=== PATIENT | female | born 1985 | race American Indian/Alaskan Native ===

== ENCOUNTER 2017-05-26 11:19 | Emergency (ER) | payer SELFPAY ==
--- NOTE | 2017-05-26 11:26 | ED PDOC ---
Arrival/HPI - General Time Seen by Provider: 05/26/17 11:24 Historian: Patient - History of Present Illness Narrative History of Present Illness (Text): 05/26/17 11:26 32 y/o female, pmh including bronchitis/asthma (out of the advair diskus 250/50 bid, not allergic to z-pack, c/o coughing/fever/bodyache x 2 days. Productive coughing with phelgm, still smoking which I advised her to stop smoking, subjective fever, associated with the bodyache, no night sweat, no rash, no numbness or tingling, eating and drinking well with no nausea or vomiting, no other medical or psychological complaints. Past Medical History - Provider Review Nursing Documentation Reviewed: Yes - Infectious Disease Hx of Infectious Diseases: None - Cardiac Hx Hypotension: Yes - Pulmonary Hx Asthma: Yes - Psychiatric Hx Substance Use: No - Anesthesia Hx Anesthesia: No Family/Social History - Physician Review Nursing Documentation Reviewed: Yes Family/Social History: Unknown Family HX Smoking Status: Current Some Days Smoker Hx Alcohol Use: Yes Hx Substance Use: No Allergies/Home Meds Allergies/Adverse Reactions: Allergies unkl antibiotic Allergy (Uncoded 05/26/17 11:57) RASH Review of Systems - Review of Systems Constitutional: absent: Fatigue, Fevers Eyes: absent: Vision Changes ENT: absent: Hearing Changes Respiratory: Cough, Sputum. absent: SOB, Wheezing Cardiovascular: absent: Chest Pain Gastrointestinal: absent: Abdominal Pain, Diarrhea, Nausea, Vomiting Musculoskeletal: Myalgias. absent: Arthralgias, Back Pain, Joint Swelling Skin: absent: Rash, Pruritis, Skin Lesions Neurological: absent: Headache, Dizziness Physical Exam Vital Signs Reviewed: Yes Vital Signs Temp Pulse Resp BP Pulse Ox 05/26/17 11:51 16 05/26/17 11:24 98.7 F 91 H 16 127/82 98 Temperature: Afebrile Blood Pressure: Normal Pulse: Regular Respiratory Rate: Normal Appearance: Positive for: Well-Appearing, Non-Toxic, Comfortable Pain Distress: None Mental Status: Positive for: Alert and Oriented X 3 - Systems Exam Head: Present: Atraumatic, Normocephalic Pupils: Present: PERRL Extroacular Muscles: Present: EOMI Conjunctiva: Present: Normal Ears: Present: NORMAL TM, Normal Canal. No: Erythema Mouth: Present: Moist Mucous Membranes Pharnyx: No: ERYTHEMA, EXUDATE, TONSILS ENLARGED Nose (External): Present: Atraumatic. No: Abrasion, Contusion Nose (Internal): Present: Normal Inspection, No Active Bleeding. No: Rhinorrhea , Septal Hematoma, Epistaxis Neck: Present: Normal Range of Motion, Trachea Midline. No: MIDLINE TENDERNESS , Lymphadenopathy Respiratory/Chest: Present: Clear to Auscultation, Good Air Exchange, Wheezes ( mild bilaterally), Decreased Breath Sounds (mild bilaterally), Rhonchi (mild bilaterally). No: Respiratory Distress, Accessory Muscle Use, Rales, Retracting , Tachypneic, Tender to Palpation Cardiovascular: Present: Regular Rate and Rhythm, Normal S1, S2, Other (no pedal edema). No: Murmurs Abdomen: Present: Normal Bowel Sounds. No: Tenderness, Distention, Peritoneal Signs Back: Present: Normal Inspection Upper Extremity: Present: Normal Inspection. No: Cyanosis, Edema Lower Extremity: Present: Normal Inspection. No: Edema Neurological: Present: GCS=15, Speech Normal, Motor Func Grossly Intact, Gait Normal, Memory Normal Skin: Present: Warm, Dry, Normal Color. No: Rashes Psychiatric: Present: Alert, Oriented x 3, Normal Insight, Normal Concentration Medical Decision Making ED Course and Treatment: 05/26/17 11:46 -rapid flu -chest xray -duoneb, prednisone, zithromax, singulair -observe and reasses 05/26/17 12:31 -Urine hcg negative -Rapid flu negative -Chest xray show no active disease -Lung is clear to auscultate with no wheezing/crackles/chronchis. -Pt. feels significantly better, coughing resolved, bilateral increase aeration. -Discharge home with zithromax, prednisoine, albuterol MDI, advair diskus, singulair, stay hydrated, bed rest, follow up with your own pmd within 2 days, return to the ER for any new or worsening signs or symptoms. - Lab Interpretations Lab Results: Lab Results 05/26/17 11:42: Influenza Typ A,B (EIA) Negative for flu a/b I have reviewed the lab results: Yes Interpretation: No clinic. lab abnormalty - RAD Interpretation Radiology Orders: 05/26/17 11:40 CHEST PORTABLE [RAD] Stat no active disease Admissions Assistant: Radiologist - Medication Orders Current Medication Orders: Discontinued Medications Albuterol/Ipratropium (Duoneb 3 Mg/0.5 Mg (3 Ml) Ud) 3 ml IH STAT STA Stop: 05/26/17 11:41 Last Admin: 05/26/17 12:01 Dose: 3 ml Azithromycin (Zithromax) 500 mg PO STAT STA PRN Reason: Protocol Stop: 05/26/17 11:41 Last Admin: 05/26/17 12:01 Dose: 500 mg Montelukast Sodium (Singulair) 10 mg PO STAT STA Stop: 05/26/17 11:41 Last Admin: 05/26/17 12:01 Dose: 10 mg Prednisone (Prednisone Tab) 60 mg PO STAT ONE Stop: 05/26/17 11:41 Last Admin: 05/26/17 12:01 Dose: 60 mg - PA / ER PHYSICIAN / Resident Statement / has reviewed & agrees with the documentation as recorded. Disposition/Present on Arrival - Present on Arrival Any Indicators Present on Arrival: No History of DVT/PE: No History of Uncontrolled Diabetes: No Urinary Catheter: No History of Decub. Ulcer: No History Surgical Site Infection Following: None - Disposition Have Diagnosis and Disposition been Completed?: Yes Diagnosis: Medication refill, Bronchitis Disposition: HOME/ ROUTINE Disposition Time: 18:07 Condition: IMPROVED Additional Instructions: Discharge home with zithromax, prednisoine, albuterol MDI, advair diskus, singulair, stay hydrated, bed rest, follow up with your own pmd within 2 days, return to the ER for any new or worsening signs or symptoms. Prescriptions: Albuterol HFA [Ventolin HFA 90 mcg/actuation (8 g)] 2 puff IH [id number] PRN #1 puff PRN Reason: Other Azithromycin [Zithromax] 250 mg PO DAILY #4 tab Benzonatate [Tessalon Perles] 100 mg PO TID PRN #30 sgl PRN Reason: Other Fluticasone/Salmeterol 250/50 [Advair Diskus] 1 puff IH Q12 #1 unit Montelukast [Singulair] 10 mg PO DAILY #20 tab predniSONE [Prednisone] 2 tab PO DAILY #8 tab Referrals: [facility] [place] [facility] [place] - Follow up with primary Forms: WORK NOTE
[2017-05-26 11:29] VITALS: BP 127/82; PULSE 91; RESP 16; TEMP 98.7; O2SAT 98
[2017-05-26] MEDS ORDERED: Albuterol-Ipratrop 3 mg / 0.5 (3 ml) UD IH STA (11:40)
--- NOTE | 2017-05-26 13:25 | RAD ---
HISTORY: medical clearance COMPARISON: 06/12/2016 FINDINGS: LUNGS: No active pulmonary disease. PLEURA: No significant pleural effusion identified, no pneumothorax apparent. CARDIOVASCULAR: Normal. OSSEOUS STRUCTURES: No significant abnormalities. VISUALIZED UPPER ABDOMEN: Normal. OTHER FINDINGS: None. IMPRESSION: No active disease.
--- NOTE | 2017-05-27 00:56 | CARD ---
APPROVED REPORT EKG Measurement Heart [id number] <Conclusion> Normal sinus rhythm Normal ECG
== END 2017-05-26 13:19 | disposition home or self-care (01) ==
LOC: ED 11:19
DX: J40 Bronchitis, not specified as acute or chronic (principal); Z76.0 Encounter for issue of repeat prescription

== ENCOUNTER 2017-06-15 14:30 | Emergency (ER) | payer OTHER ==
[2017-06-15 14:49] VITALS: TEMP 98.6; O2SAT 98; BMI 29.2
[2017-06-15] MEDS ORDERED: Albuterol-Ipratrop 3 mg / 0.5 (3 ml) UD IH STA ×2 (14:59→15:02)
--- NOTE | 2017-06-15 15:07 | ED PDOC ---
Arrival/HPI - General Chief Complaint: Respiratory Distress Time Seen by Provider: 06/15/17 14:52 Historian: Patient - History of Present Illness Narrative History of Present Illness (Text): 06/15/17 15:04 32yo female Asthmatic who present with complaint of wheezing, cough, and SOB. States she broke her nebulizer 3weeks ago and has been having these symptoms every night and at work. She smokes tobacco. Never admitted for Asthma. Not steroid dependent. Denies fever, chills, sick contact, travel, any other complaint. Past Medical History - Provider Review Nursing Documentation Reviewed: Yes - Infectious Disease Hx of Infectious Diseases: None - Cardiac Hx Hypotension: Yes - Pulmonary Hx Asthma: Yes - Neurological Hx Neurological Disorder: No - HEENT Hx HEENT Disorder: No - Renal Hx Renal Disorder: No - Endocrine/Metabolic Hx Endocrine Disorders: No - Hematological/Oncological Hx Blood Disorders: No - Integumentary Hx Dermatological Disorder: No - Musculoskeletal/Rheumatological Hx Musculoskeletal Disorders: No - Gastrointestinal Hx Gastrointestinal Disorders: No - Genitourinary/Gynecological Hx Genitourinary Disorders: No - Psychiatric Hx Psychophysiologic Disorder: No Hx Substance Use: No - Anesthesia Hx Anesthesia: No Family/Social History - Physician Review Nursing Documentation Reviewed: Yes Family/Social History: Unknown Family HX Smoking Status: Current Some Days Smoker Hx Alcohol Use: Yes Hx Substance Use: No Allergies/Home Meds Allergies/Adverse Reactions: Allergies unkl antibiotic Allergy (Uncoded 05/26/17 11:57) RASH Review of Systems - Physician Review All systems were reviewed & negative as marked: Yes - Review of Systems Constitutional: Normal Eyes: Normal ENT: Normal Respiratory: SOB, Cough, Wheezing Cardiovascular: Normal Gastrointestinal: Normal Genitourinary Female: Normal Musculoskeletal: Normal Skin: Normal Neurological: Normal Endocrine: Normal Hemo/Lymphatic: Normal Psychiatric: Normal Physical Exam Vital Signs Reviewed: Yes Vital Signs Temp Pulse Resp BP Pulse Ox 06/15/17 15:50 75 18 142/89 98 06/15/17 14:52 16 06/15/17 14:48 98.6 F 80 16 144/99 H 98 Temperature: Afebrile Blood Pressure: Normal Pulse: Regular Respiratory Rate: Normal Appearance: Positive for: Well-Appearing, Non-Toxic, Comfortable Pain Distress: None Mental Status: Positive for: Alert and Oriented X 3 - Systems Exam Head: Present: Atraumatic, Normocephalic Pupils: Present: PERRL Extroacular Muscles: Present: EOMI Conjunctiva: Present: Normal Mouth: Present: Moist Mucous Membranes Neck: Present: Normal Range of Motion Respiratory/Chest: Present: Clear to Auscultation, Good Air Exchange, Wheezes ( Very mild at the bases). No: Respiratory Distress, Accessory Muscle Use, Decreased Breath Sounds, Rales, Retracting, Rhonchi Cardiovascular: Present: Regular Rate and Rhythm, Normal S1, S2. No: Murmurs Abdomen: Present: Normal Bowel Sounds. No: Tenderness, Distention, Peritoneal Signs Back: Present: Normal Inspection Upper Extremity: Present: Normal Inspection. No: Cyanosis, Edema Lower Extremity: Present: Normal Inspection. No: Edema Neurological: Present: GCS=15, CN II-XII Intact, Speech Normal Skin: Present: Warm, Dry, Normal Color. No: Rashes Psychiatric: Present: Alert, Oriented x 3, Normal Insight, Normal Concentration Medical Decision Making ED Course and Treatment: 06/15/17 20:14 PT was comfortable in ED. On re evaluation her lung was CTA b/l. sheas ambulatory and talking in full sentence without symptoms. DC home with Albuteol , Advair and prednisone. Counselled on smoking cessation. Referred to her PMD. - Medication Orders Current Medication Orders: Discontinued Medications Albuterol/Ipratropium (Duoneb 3 Mg/0.5 Mg (3 Ml) Ud) 3 ml IH STAT STA Stop: 06/15/17 15:00 Last Admin: 06/15/17 15:19 Dose: 3 ml Albuterol/Ipratropium (Duoneb 3 Mg/0.5 Mg (3 Ml) Ud) 3 ml IH STAT STA Stop: 06/15/17 15:03 Last Admin: 06/15/17 15:19 Dose: 3 ml Prednisone (Prednisone Tab) 40 mg PO STAT STA Stop: 06/15/17 15:01 Last Admin: 06/15/17 15:19 Dose: 40 mg Disposition/Present on Arrival - Present on Arrival Any Indicators Present on Arrival: No History of DVT/PE: No History of Uncontrolled Diabetes: No Urinary Catheter: No History of Decub. Ulcer: No History Surgical Site Infection Following: None - Disposition Have Diagnosis and Disposition been Completed?: Yes Diagnosis: Asthma exacerbation Disposition: HOME/ ROUTINE Disposition Time: 15:45 Patient Plan: Discharge Condition: STABLE Discharge Instructions (ExitCare): Asthma (ED) Additional Instructions: Follow up with your doctor Return to ED for any new or worsening symptoms Prescriptions: Albuterol HFA [Ventolin HFA 90 mcg/actuation (8 g)] 2 puff IH [id number] #1 puff Fluticasone/Salmeterol 250/50 [Advair Diskus] 1 puff IH Q12 #1 puff predniSONE [Prednisone] 20 mg PO DAILY #5 tab Referrals: Lissette Cartagena, [Primary Care Provider] - Follow up with primary Forms: [facility] ([place]), WORK NOTE
[2017-06-15 15:51] VITALS: BP 142/89; PULSE 75; RESP 18
== END 2017-06-15 16:09 | disposition home or self-care (01) ==
LOC: ED 14:30
DX: J45.901 Unspecified asthma with (acute) exacerbation (principal)